=== PATIENT | female | born 1975 | race Two or more races ===

== ENCOUNTER 2018-10-11 06:28 | Day surgery (SDC) | payer OTHER ==
[2018-10-10 17:40] VITALS: BMI 19.3
[2018-10-11] MEDS ORDERED: SEVOFLURANE 250 ML BTL ONE (07:26)
[2018-10-11] MEDS ORDERED: LIDOCAINE HCL/PF 2% SDV 5ML VIAL ONE (07:34)
[2018-10-11] MEDS ORDERED: MIDAZOLAM HCL 2 MG/2 ML SINGLE DOSE VIAL ONE (07:35)
[2018-10-11] MEDS ORDERED: PROPOFOL 20 ML ONE ×2 (07:35)
--- NOTE | 2018-10-11 07:39 | HP ---
History & Physical Update - History History: No Change - Physical Physical: No Change - Assessment Assessment: No Change - Plan Plan: No Change (H&P reviewed, no change since 09/22/18 Consent signed and witnessed)
[2018-10-11] MEDS ORDERED: DEXAMETHASONE SOD PHOSPHATE 4 MG/1 ML VIAL ONE (08:06)
[2018-10-11] MEDS ORDERED: KETOROLAC TROMETHAMINE 30 MG/1 ML VIAL ONE (08:09)
[2018-10-11] MEDS ORDERED: oxyCODONE HCL 5 MG TABLET PO PRN ×2 (09:27→09:42)
[2018-10-11] MEDS ORDERED: ACETAMINOPHEN 325 MG TABLET (FP) PO PRN (09:27)
[2018-10-11] MEDS ORDERED: ONDANSETRON 4 MG/2 ML VIAL IVPUSH PRN ×2 (09:27→09:42)
[2018-10-11] MEDS ORDERED: LACTATED RINGERS SOLUTION 1,000 ML IV SCH (09:30)
[2018-10-11] MEDS ORDERED: IBUPROFEN 800 MG/8 ML IJ IVPB PRN (09:42)
[2018-10-11] MEDS ORDERED: IBUPROFEN 600 MG TABLET (FP) PO PRN (09:42)
[2018-10-11] MEDS ORDERED: ELECTROLYTE-148 SOLN 1,000 ML IV SCH (09:45)
--- NOTE | 2018-10-11 11:54 | OP ---
Operative Note - Note: Operative Date: 10/11/18 Pre-Operative Diagnosis: 43yo P2 with Submucosal fibroid, menorhagia Operation: Hysteroscopy/Myomectomy/D&C Findings: Posterior wall 1cm fibroid Post-Operative Diagnosis: Same as Pre-op Surgeon: Soledad Walsh Anesthesiologist/CHILD WATCH ATTENDANT: Yeny Glover Anesthesia: MAC Specimens Removed: Shavings of the fibroid Estimated Blood Loss (mls): 20 Drains, Volume Out (mls): 50 Fluid Volume Replaced (mls): 500 Operative Report Dictated: Yes
[2018-10-11 12:07] VITALS: BP 94/58; PULSE 81; TEMP 98
--- NOTE | 2018-10-12 00:28 | OP ---
DATE OF OPERATION: 10/11/2018 PREOPERATIVE DIAGNOSIS: A 43-year-old, para 2, with submucosal fibroid and menorrhagia. OPERATION: Hysteroscopy, myomectomy, dilation and curettage. FINDINGS: Posterior wall 1-cm fibroid. POSTOPERATIVE DIAGNOSIS: A 43-year-old, para 2, with submucosal fibroid and menorrhagia. SURGEON: Soledad Walsh MD ANESTHESIOLOGIST: Yeny Glover MD ANESTHESIA: MAC. SPECIMEN REMOVED: Shavings of the fibroid. DESCRIPTION OF THE OPERATIVE PROCEDURE: After assuring informed consent, the patient was brought to the operating room where she was placed in the dorsal lithotomy positions. Perineum and vagina were prepped and draped in the sterile fashion. Gong retractor was placed into the vagina and then the anterior cervical lip was grasped with single-toothed tenaculum. Cervix was gradually dilated to accommodate 6.3-mm hysteroscope, which was primed and weight-balanced prior to entry. Hydrodilation was performed to achieve entry into the uterus, which was found to be anteverted at the acute angle. Excellent visualization was assured and it was confirmed that the device was placed without any difficulty and there was no fluid loss confirming absence of any perforation. The posterior uterine wall 1-cm fibroid was noted, at which point the resection device was introduced. The mechanical resection device was not made available by [employer], so only handheld operative piece was introduced and the majority of the posterior wall fibroid was resected. Subsequently, the hysteroscope was removed and manual curettage was performed with a sharp curette. Excellent hemostasis was noted. All instruments were removed from the uterus, vagina, and cervix. Estimated blood loss was 20 mL. Estimated urine output was 50 mL. Patient received 500 mL of IV fluids. Sponge and instrument counts were correct x2. Patient was brought to the recovery room in stable condition. Latrell [id number]
--- NOTE | 2018-10-12 18:04 | PATH ---
Surgical Pathology Report Patient Name: JEWELS GARZA [facility]. Rec. #: [id number] /Age/Gender: 1975 (Age: 43) / F Account: [id number] Location: [facility] Taken: 10/11/2018 Received: 10/11/2018 Reported: 10/12/2018 Physicians: Soledad Walsh M.D. Specimen(s) Received A: ENDOMETRIAL CURETTINGS B: FIBROID RESECTION Clinical History Leiomyoma of uterus Final Diagnosis A. ENDOMETRIAL CURETTINGS, DILATION AND CURETTAGE: FRAGMENTS OF SECRETORY ENDOMETRIUM, FIBROMUSCULAR TISSUE, AND BENIGN CERVICAL TISSUE ADMIXED WITH BLOOD. B. FIBROID, RESECTION: 1G, FRAGMENTS OF SECRETORY ENDOMETRIUM AND FIBROMUSCULAR TISSUE SUGGESTIVE OF SUBMUCOSAL LEIOMYOMA. Electronically Signed Lillie Moncada M.D. Gross Description A. Received in formalin labeled "endometrial curettings," is a 5.0 x 3.0 x 0.4 cm aggregate of dye-brown soft tissue fragments admixed with blood clot. The formalin is filtered and the specimen is entirely submitted in 3 cassettes. B. Received in formalin labeled "fibroid resection," is a 1 g, 2.5 x 2.0 x 0.4 cm aggregate of dye soft tissue fragments. The formalin is filtered and the specimen is entirely submitted in 2 cassettes. /10/11/201810/11/2018
== END 2018-10-11 12:00 | disposition home or self-care (01) ==
LOC: JASU-SURG 06:28
PROVIDERS: ATTEND Obstetrics & Gynecology
PROC: 0UJD8ZZ Inspection of Uterus and Cervix, Via Natural or Artificial Opening Endoscopic (ICD-10-PCS; 2018-10-11)
PROC: 0UB98ZZ Excision of Uterus, Via Natural or Artificial Opening Endoscopic (ICD-10-PCS; principal; 2018-10-11 07:30)
PROC: 0UDB7ZX Extraction of Endometrium, Via Natural or Artificial Opening, Diagnostic (ICD-10-PCS; 2018-10-11 07:30)
DX: D25.0 Submucous leiomyoma of uterus (principal); N92.0 Excessive and frequent menstruation with regular cycle
CPT/HCPCS: 84703; 88304-TC; 88305-TC; 94760